=== PATIENT | female | born 1955 | race Caucasian/White ===

== ENCOUNTER 2021-11-12 12:35 | Outpatient (CLI) | payer MEDICARE ==
[~2021-11-12] VITALS: Ht 149.9 cm; Wt 76.9 kg
[2021-11-12] VITALS (10 sets, daily range): BP systolic 103–115; BP diastolic 54–62; PULSE 75–85; TEMP 97.4–97.7
[2021-11-12] MEDS ORDERED: ZOFRAN8 MG PO (13:35)
[2021-11-12] MEDS ORDERED: DECADRON 4MG TAB4 MG PO (13:36)
[2021-11-12] MEDS ORDERED: COZAAR 50MG50 MG/TAB PO (13:37)
[2021-11-12] MEDS ORDERED: LASIX 40MG TABL40 MG PO (13:38)
--- NOTE | 2021-11-12 21:02 | NUR ---
Pt has tolerated transfusions well. She did develop some redness at the wrist where the 20g IV catheter ended, and also some local tenderness and red areas to rt lower wrist. I did flush multiple saline flushes and did not cause any swelling, and as long as rt wrist in neutral position, there was no pain with flushing. I was unable to withdraw blood to confirm position, however Lindy was unable to draw blood when IV was placed. Transfusion was continued with lower rate of 150 cc/hr, and with care to keep wrist slightly in flexion. Transfusion is complete at this time, and redness has disappeared there is no itchines. IV dc'd with cath intact
== END 2021-11-12 21:29 | disposition home or self-care (01) ==
LOC: EUO 12:35
DX: D39.11 Neoplasm of uncertain behavior of right ovary (principal)
CPT/HCPCS: J7050; P9016